=== PATIENT | female | born 1950 | race African-American/Black ===

== ENCOUNTER 2016-12-26 05:07 | Emergency (ER) | payer OTHER ==
--- NOTE | ~2016-12-26 | CR72 ---
[facility] A Service of [facility] & [facility] RADIOLOGY TEXT RESULTS PATIENT: HAMMAD TAN LOCATION: [facility] : 52 UNIT #: [id number] AGE: [address]: Hermilo Gonzalez MD SEX: F ORDER DR: [id number] [facility] [address] [place], [place] [address] [id number] E MR#: [id number] Acc #: [id number] NAME: HAMMAD TAN : 1950 SEX: F STUDY DATE/TIME: 12/26/2016 3:58 UNIT: [facility] ROOM: STUDY DESCRIPTION: CR Chest Single View Portable Attending Physician: Hermilo Gonzalez M.D. Ordering Physician: Hermilo Gonzalez M.D. Primary Care Physician: William Durán M.D. MEDICAL IMAGING REPORT This report is preliminary unless electronic signature is present EXAM Frontal chest 12/26/2016 INDICATION 66-year-old female with chest pain, shortness of air tonight, hypertension. TECHNIQUE Frontal chest was performed and compared with 09/10/2009. FINDINGS The cardiac silhouette is within normal limits. The vascularity is unremarkable. There are calcified granulomas but the lungs are otherwise clear. There is thoracic spondylosis. IMPRESSION Negative frontal chest. Calcified granulomatous changes and thoracic spondylosis. Dictated by... Donald Auguste M.D. THIS IS AN ELECTRONICALLY VERIFIED REPORT Donald Auguste M.D. at 12/29/2016 9:13 AM Jeronimo TD: 12/26/2016 08:51 JOB #: [id number] MEDICAL IMAGING REPORT Page 1 of 1 COPY
--- NOTE | ~2016-12-26 | EKG ---
PATIENT: HAMMAD TAN UNIT #: [id number] Ventricular Rate: 86 BPM Atrial Rate: 86 BPM P-R Interval: 146 ms QRS Duration: 80 ms Q-T Interval: 378 ms QTC Calculation(Bezet): 452 ms P Laurel: 60 degrees Calculated R Laurel: -5 degrees Calculated T Laurel: 24 degrees Diagnosis Line: Normal sinus rhythm Diagnosis Line: Normal ECG Diagnosis Line: When compared with ECG of 10-SEP-2009 09:03, Diagnosis Line: No significant change was found Diagnosis Line: Confirmed by TESSA DAMON MD ([id number]) on 12/26/2016 Diagnosis Line: 4:39:25 PM INTERPRETING MD: NELSON CATHERINE
[~2016-12-26 05:07] MED LIST: ALBUTEROL17 GM INH; ALLEGRA ALLERG180 MG PO; ATENOLOL-CHLORT1 TA2 PO; TENORETIC 50 TA1 TAB PO; ZOCOR PO
[2016-12-26 05:13] LABS: POC - CKMB <1.0 ng/mL (0.0-7.9); POC - TROPONIN <0.05 ng/mL (<=0.05)
[2016-12-26 05:19] LABS: URINE SOURCE CLEAN CATCH
[2016-12-26 05:20] LABS: BASOPHIL% 0.3 % (0-2.5); EOSINOPHIL# 0.1 X10e3 (0-0.7); EOSINOPHIL% 1.5 % (0.0-7.0); HEMATOCRIT 37.1 % (35.0-45.0); HEMOGLOBIN 12.2 gm/dL (12.0-16.0); LYMPHOCYTE# 2.2 X10e3 (1.0-3.5); LYMPHOCYTE% 40.8 % (17.0-45.0); MEAN CELL VOLUME 89.9 FL (83-96); MEAN CORPUSCULAR HEMOGLOBIN 29.6 PG (28-34); MEAN CORPUSCULAR HGB CONC 32.9 g/dL (30-36); MEAN PLATELET VOLUME 7.7 FL (6.5-11.5); MONOCYTE# 0.4 X10e3 (0-1.0); MONOCYTE% 7.1 % (3.0-12.0); NEUTROPHIL# 2.7 X10e3 (1.5-7.1); NEUTROPHIL% 50.3 % (40-75); PLATELET COUNT 189 X10e3 (140-420); RED BLOOD COUNT 4.13 X10e (3.90-5.30); RED CELL DISTRIBUTION WIDTH 14.1 % (11.0-15.5); WHITE BLOOD COUNT 5.4 X10e3 (4.0-10.5)
[2016-12-26 05:31] LABS: DIFF IND NO
[2016-12-26 05:57] LABS: ALBUMIN SERUM 3.3 g/dL (3.5-5.0); ALKALINE PHOSPHATASE 57 U/L (32-92); ALT (SGPT) 17 U/L (10-40); AMYLASE 10 U/L (0-46); AST (SGOT) 23 U/L (10-42); BILIRUBIN, DIRECT 0.1 mg/dL (0.0-0.2); BLOOD UREA NITROGEN 8 mg/dL (9-23); BUN/CREATININE RATIO 11.42; CALCIUM SERUM 7.9 mg/dL (8.4-10.2); CARBON DIOXIDE 27 mmol/L (22-31); CHLORIDE 103 mmol/L (100-111); CREATININE SERUM 0.7 mg/dL (0.6-1.4); GLOM FILT RATE Estimated 105.4 mL/min (>60); GLUCOSE FASTING 113 mg/dL (70-110); LIPASE 17 U/L (22-51); PROTEIN TOTAL SERUM 5.9 g/dL (6.0-8.3); SODIUM 135 mmol/L (135-145)
[2016-12-26 06:05] LABS: BILIRUBIN,TOTAL <0.1 mg/dL (0.2-2.0); POTASSIUM 2.9 mmol/L (3.5-5.1)
[2016-12-26 06:18] LABS: URINE APPEARANCE CLEAR; URINE BILIRUBIN NEG (NEG); URINE BLOOD TRACE (NEG); URINE COLOR YELLOW; URINE GLUCOSE NEG (NEG); URINE KETONE NEG (NEG); URINE LEUKOCYTE ESTERASE NEG (NEG); URINE NITRATE NEG (NEG); URINE PH 6.5 (5-8); URINE PROTEIN NEG (NEG); URINE SPECIFIC GRAVITY 1.003 (1.003-1.035); URINE UROBILINOGEN 0.2 MG/DL (NEG)
[2016-12-26 06:20] LABS: URINE BACTERIA AUWI NEG (NEGATIVE); URINE SQUAMOUS EPITHELIAL CELL NONE SEEN /[HPF]; UWBCS1 AUWI 0-2 (0-5)
== END 2016-12-26 06:25 | disposition home or self-care (01) ==
LOC: CED 05:07
PROVIDERS: Emergency Medicine
DX: R07.89 Other chest pain (principal); E87.6 Hypokalemia; R19.7 Diarrhea, unspecified; I10 Essential (primary) hypertension; E78.5 Hyperlipidemia, unspecified; Z79.899 Other long term (current) drug therapy
CPT/HCPCS: 36415; 71010; 80048; 80076; 81003; 82150; 82553; 83690; 84484; 85025; 93005; 96360; 99284